=== PATIENT | male | born 1985 | race Caucasian/White ===

== ENCOUNTER → 2018-04-18 | Outpatient (CLI) | payer OTHER ==
--- NOTE | 2018-04-18 17:49 | RAD ---
Scrotal ultrasound 04/18/2018 CLINICAL HISTORY: Scrotal pain. TECHNIQUE: Using a combination of real-time ultrasound imaging and color-flow and pulse Doppler imaging techniques, duplex evaluation of the scrotal sac and its contents was performed. Multiple images were obtained. FINDINGS: Both testicles are within normal limits in size and echogenicity. The right testicle measures 2.6 x 3.6 x 1.9 cm in longitudinal, transverse, and AP dimensions. The left testicle measures 2.6 x 3.6 x 1.9 cm in size. No focal abnormality of either testicle is seen. Normal color-flow and pulse Doppler imaging to both testicles is noted. Both epididymal heads are within normal limits in size and echogenicity. No hydrocele or varicocele is seen. IMPRESSION: Negative study. Electronically signed by: Uriel Allen MD (04/18/2018 5:45 PM) [facility]
== END | disposition home or self-care (01) ==
LOC: US 16:32
PROVIDERS: ATTEND Physician Assistant
DX: N50.82 Scrotal pain (principal); N50.819 Testicular pain, unspecified
CPT/HCPCS: 76870

== ENCOUNTER 2020-04-26 04:10 | Emergency (ER) | payer OTHER ==
[~2020-04-26] VITALS: Ht 180.3 cm; Wt 84.6 kg
--- NOTE | 2020-04-26 04:21 | PHYS DOC ---
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 but I woke up with severe back pain... ".. ".. Looked it up on internet.. and said I may have meningitis." Patient is a 34 year old male who presents with above hx and complaints lumbar sacral pain. Patient states the pain woke him out of sleep. Describes pain as someone having a knee in the middle of the back. Patient denies previous history of renal stones. Patient has had a history of hidradenitis requiring skin grafting to his axillary area. Patient denies IV drug use. Denies specific ill contacts. No recent travel. Patient does smoke. Patient recently has started a new job at [employer] or [employer] closed. Patient denies any ballistic trauma. Patient only follows with Dr. Juarez. Review of Systems: Review of Systems: Constitutional: Denies fever or chills Eyes: Denies change in visual acuity HENT: Denies nasal congestion or sore throat Respiratory: Denies cough or shortness of breath Cardiovascular: Denies chest pain or edema GI: Complains of nausea : Denies dysuria Musculoskeletal: Complains of severe back pain Integument: Denies rash Neurologic: Denies headache, focal weakness or sensory changes Endocrine: Denies polyuria or polydipsia Lymphatic: Denies swollen glands Psychiatric: Denies depression or anxiety Heart Score: Risk Factors: Risk Factors: DM, Current or recent (<one month) smoker, HTN, HLP, family history of CAD, obesity. Risk Scores: Score 0 - 3: 2.5% MACE over next 6 weeks - Discharge Home Score 4 - 6: 20.3% MACE over next 6 weeks - Admit for Clinical Observation Score 7 - 10: 72.7% MACE over next 6 weeks - Early Invasive Strategies Family History: Family History: Noncontributory Current Medications: Current Meds: See nursing for home meds Allergies: Allergies: Allergic to penicillin Physical Exam: PE: Constitutional: Moderate acute distress, non-toxic appearance. [] HENT: Normocephalic, atraumatic, bilateral external ears normal, oropharynx moist, no oral exudates, nose normal. [] Eyes: PERRLA, EOMI, conjunctiva normal, no discharge. [] Neck: Normal range of motion, no tenderness, supple, no stridor. [] Cardiovascular:Heart rate regular rhythm, no murmur [] Lungs & Thorax: Bilateral breath sounds equal apex with scattered wheezes on auscultation [] Abdomen: Bowel sounds normal, soft, no tenderness, no masses, no pulsatile masses. [] Skin: Warm, dry, no erythema, no rash. Tattoos. Multiple skin lesions. Back: Lumbar sacral muscle spasm and tenderness, mild CVA tenderness. [] Extremities: No tenderness, no cyanosis, no clubbing, ROM intact, no edema. Bilateral axillary scars. Bilateral groin adenopathy. ( Pt. states he has had this adenopathy chronically for months if not years. ) Straight leg lift does not markedly exacerbate his pain. Neurologic: Alert and oriented X 3, normal motor function, normal sensory function, no focal deficits noted. [] Psychologic: Affect very anxious, judgement normal, mood normal. [] EKG: EKG: [] Radiology/Procedures: Radiology/Procedures: [][place] [address] IMAGING REPORT Signed PATIENT: CORWIN MCGARRY ACCOUNT: [id number] : 1985 LOCATION: ER AGE: 34 SEX: M EXAM STATUS: REG ER ORD. PHYSICIAN: VIOLETA MENENDEZ MD REASON: BACK PAIN, RENAL COLIC PROCEDURE: CT ABDOMEN PELVIS WO CONTRAST CT lumbar spine without contrast. CT abdomen and pelvis without contrast. HISTORY: Severe back pain. Lumbar spine findings: Lumbar vertebral body height and alignment intact. No fracture. No spondylolysis defect. No lytic or sclerotic bone lesion. Paraspinal tissues are unremarkable. L5-S1 there is a bulky disc osteophyte contributing to severe spinal canal and left lateral recess stenosis and moderate to severe neural foraminal stenoses. IMPRESSION: No acute osseous injury lumbar spine. Lumbosacral disc disease as described above. CT abdomen findings: 5 mm nodule lateral basilar right lower lobe image 5. Separate medial basilar right lower lobe linear nodular density measuring 20 x 7 mm image 6. Scattered bilateral lower lobe some solid nodules largest measuring 10 mm left lower lobe image 3. Lower thoracic disc disease as well as lower lumbar disc disease. Subcentimeter hypodensity inferior right hepatic lobe too small to characterize statistically most likely small cyst or hemangioma no follow-up is necessary. Gallbladder, pancreas, spleen, adrenal glands and kidneys are unremarkable. No urinary calculi or hydronephrosis or perinephric edema. Appendix is negative. No obstruction or inflammation the GI tract. No abdominal free fluid. Left upper quadrant abdominal wall 1.5 cm in diameter lesion resulting in skin thickening and mild subcutaneous density with a depth of 0.6 cm. Pelvis findings: No bladder calculi. Prostate, rectum and bones are unremarkable. Mild enlarged bilateral inguinal lymph nodes with cortical thickening and round morphology largest measuring 1.5 cm of the left lower groin. IMPRESSION: 1. Mild bilateral inguinal adenopathy as described above. 2. Solid and subsolid nodules of the bilateral lower lobes largest there is a subsolid nodule measuring 10 mm and a separate linear nodular density at the right lower lobe measuring 20 x 7 mm. This could represent infectious/inflammatory process versus metastatic disease. 3. Left upper quadrant abdominal wall skin lesion with mild subcutaneous density measuring 1.5 x 0.6 cm. This is indeterminate, correlate with physical examination. Exposure: One or more of the following individualized dose reduction techniques were utilized for this examination: 1. Automated exposure control 2. Adjustment of the mA and/or kV according to patient size 3. Use of iterative reconstruction technique Electronically signed by: Radha Arreola MD (04/26/2020 5:23 AM) [facility] DICTATED AND SIGNED BY: RADHA ARREOLA MD DATE: 04/26/20522 CC: RISA JUAREZ MD; VIOLETA MENENDEZ MD ~ Course & Med Decision Making: Course & Med Decision Making Pertinent Labs and Imaging studies reviewed. (See chart for details) Patient take Tylenol and ibuprofen for pain. Ice pack s as needed. Return if any concerns. Follow-up Dr. Juarez. . Review ED work-up. Impression: 1. Back pain 2. Sprain Strain 3. Groin adenopathy-history of hidradenitis [] Sariah Disclaimer: [employer] Disclaimer: This electronic medical record was generated, in whole or in part, using a voice recognition dictation system. Departure Departure: Disposition: 01 DC HOME SELF CARE/HOMELESS Condition: STABLE Referrals: RISA JUAREZ MD (PCP) VIOLETA MENENDEZ MD Apr 26, 2020 04:21
[2020-04-26] MEDS ORDERED: ORPHENADRINE CITRATE 60 MG/2 ML VIAL. IM ONE (05:00)
[2020-04-26] MEDS ORDERED: ONDANSETRON ODT 4 MG TAB.RAPDIS PO ONE (05:00)
[2020-04-26] MEDS ORDERED: KETOROLAC 60 MG/2 ML VIAL. IM ONE (05:00)
--- NOTE | 2020-04-26 05:26 | RAD ---
CT lumbar spine without contrast. CT abdomen and pelvis without contrast. HISTORY: Severe back pain. Lumbar spine findings: Lumbar vertebral body height and alignment intact. No fracture. No spondylolysis defect. No lytic or sclerotic bone lesion. Paraspinal tissues are unremarkable. L5-S1 there is a bulky disc osteophyte contributing to severe spinal canal and left lateral recess stenosis and moderate to severe neural foraminal stenoses. IMPRESSION: No acute osseous injury lumbar spine. Lumbosacral disc disease as described above. CT abdomen findings: 5 mm nodule lateral basilar right lower lobe image 5. Separate medial basilar right lower lobe linear nodular density measuring 20 x 7 mm image 6. Scattered bilateral lower lobe some solid nodules largest measuring 10 mm left lower lobe image 3. Lower thoracic disc disease as well as lower lumbar disc disease. Subcentimeter hypodensity inferior right hepatic lobe too small to characterize statistically most likely small cyst or hemangioma no follow-up is necessary. Gallbladder, pancreas, spleen, adrenal glands and kidneys are unremarkable. No urinary calculi or hydronephrosis or perinephric edema. Appendix is negative. No obstruction or inflammation the GI tract. No abdominal free fluid. Left upper quadrant abdominal wall 1.5 cm in diameter lesion resulting in skin thickening and mild subcutaneous density with a depth of 0.6 cm. Pelvis findings: No bladder calculi. Prostate, rectum and bones are unremarkable. Mild enlarged bilateral inguinal lymph nodes with cortical thickening and round morphology largest measuring 1.5 cm of the left lower groin. IMPRESSION: 1. Mild bilateral inguinal adenopathy as described above. 2. Solid and subsolid nodules of the bilateral lower lobes largest there is a subsolid nodule measuring 10 mm and a separate linear nodular density at the right lower lobe measuring 20 x 7 mm. This could represent infectious/inflammatory process versus metastatic disease. 3. Left upper quadrant abdominal wall skin lesion with mild subcutaneous density measuring 1.5 x 0.6 cm. This is indeterminate, correlate with physical examination. Exposure: One or more of the following individualized dose reduction techniques were utilized for this examination: 1. Automated exposure control 2. Adjustment of the mA and/or kV according to patient size 3. Use of iterative reconstruction technique Electronically signed by: Daryn Arreola MD (04/26/2020 5:23 AM) [facility]
[2020-04-26 06:00] VITALS: BP 132/80
== END 2020-04-26 06:30 | disposition home or self-care (01) ==
LOC: ER 04:10
DX: S33.5XXA Sprain of ligaments of lumbar spine, initial encounter (principal); S33.8XXA Sprain of other parts of lumbar spine and pelvis, initial encounter; R59.0 Localized enlarged lymph nodes; F17.210 Nicotine dependence, cigarettes, uncomplicated; Z88.0 Allergy status to penicillin; X50.9XXA Other and unspecified overexertion or strenuous movements or postures, initial encounter; Y93.89 Activity, other specified; Y92.89 Other specified places as the place of occurrence of the external cause; Y99.8 Other external cause status
CPT/HCPCS: 72131; 74176; 96372; 99285; J1885; J2360; Q0162

== ENCOUNTER 2020-08-31 12:43 | Emergency (ER) | payer OTHER ==
[~2020-08-31] VITALS: Ht 180.3 cm; Wt 84.6 kg
[2020-08-31 12:43] VITALS: BP 136/85
[2020-08-31] MEDS ORDERED: NAPR-514 PO (13:06)
[2020-08-31] MEDS ORDERED: HYDR-2155 PO (13:06)
[2020-08-31] MEDS ORDERED: AMOX875T PO (13:06)
--- NOTE | 2020-08-31 13:06 | PHYS DOC ---
Past History Past Medical History: Other Additional Past Medical Histor: hidradenitis Past Surgical History: Other Additional Past Surgical Histo: xena axilla surgery with skin grafts Smoking: Cigarettes Alcohol Use: Occasionally Adult General Chief Complaint Chief Complaint: DENTAL PROBLEM HPI HPI Patient is a 35-year-old male patient presented to the ED today complaining of 8 out of 10 throbbing left upper gum dental pain, symptoms began last night. Patient denies any fever or trismus. Denies any nausea vomiting. He states he was insurance but has never thought of seeing the dentist. Denies anything specifically exacerbating the pain. States he has tried [id number] remedies with no relief Review of Systems Review of Systems Constitutional: Denies fever or chills [] HENT: Reports left upper gum dental pain. Denies nasal congestion or sore throat [] Musculoskeletal: Denies back pain or joint pain [] Integument: Denies rash or skin lesions [] Neurologic: Denies headache, focal weakness or sensory changes [] All other systems were reviewed and found to be within normal limits, except as documented in this note. Allergies Allergies Allergies Coded Allergies Type Severity Reaction Last Updated Verified Penicillins Allergy Intermediate 04/26/20 Yes Physical Exam Physical Exam Constitutional: Well developed, well nourished, no acute distress, non-toxic appearance. [] HENT: Normocephalic, atraumatic, bilateral external ears normal, oropharynx moist, no oral exudates, nose normal. [] Left upper molars and premolars are decayed and broken. No gum erythema, no dental abscess Skin: Warm, dry, no erythema, no rash. [] Back: No tenderness, no CVA tenderness. [] Extremities: No tenderness, no cyanosis, no clubbing, ROM intact, no edema. [] Neurologic: Alert and oriented X 3, normal motor function, normal sensory function, no focal deficits noted. [] Psychologic: Affect normal, judgement normal, mood normal. [] Current Patient Data Vital Signs Vital Signs Date Time Temp Pulse Resp B/P (MAP) Pulse Ox O2 Delivery O2 Flow Rate FiO2 08/31/20 12:43 98.1 70 16 136/85 (102) 97 Room Air EKG EKG [] Radiology/Procedures Radiology/Procedures [] Heart Score Risk Factors: Risk Factors: DM, Current or recent (<one month) smoker, HTN, HLP, family history of CAD, obesity. Risk Scores: Risk Factors: DM, Current or recent (<one month) smoker, HTN, HLP, family history of CAD, obesity. Course & Med Decision Making Course & Med Decision Making Pertinent Labs and Imaging studies reviewed. (See chart for details) This is a 35-year-old male patient presented to the ED today with dental pain and infection. Has tried [id number] remedies with no relief. Given prescription for amoxicillin (he stated he has taken it with no issues despite allergy to PCN) and 6 tablets of hydrocodone and naproxen. Encouraged to follow-up with a dentist. He called later stating his toungue is itching after taking Amoxicillin. Denied any throat or tongue swelling, denied any difficulty breathing. Instructed to take Benadryl right away. Prescription for clindamycin was sent to his pharmacy. Instructed to return to the ED if symptoms did not improve with Benadryl Dragon Disclaimer Dragon Disclaimer This electronic medical record was generated, in whole or in part, using a voice recognition dictation system. Departure Departure: Impression: Primary Impression: Dentalgia Additional Impression: Infected dental caries Disposition: HOME SELF CARE/HOMELESS Condition: STABLE Referrals: RISA JUAREZ MD (PCP) follow up with a dentist as soon as you can Patient Instructions: Dental Pain, [id number] Additional Instructions: You were seen for dental pain. Please take the prescribed antibiotics until completed and pain medicine as needed for pain. 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
[2020-08-31] MEDS ORDERED: CLIN300C9 PO (17:14)
== END 2020-08-31 13:10 | disposition home or self-care (01) ==
LOC: ER 12:43
DX: K02.9 Dental caries, unspecified (principal); Z88.0 Allergy status to penicillin
CPT/HCPCS: 99283-25

== ENCOUNTER 2020-09-07 18:04 | Emergency (ER) | payer OTHER ==
[~2020-09-07] VITALS: Ht 180.3 cm; Wt 84.6 kg
[~2020-09-07 18:04] MED LIST: AMOX875T PO; CLIN300C9 PO; HYDR-2155 PO; NAPR-514 PO
[2020-09-07 18:12] VITALS: BP 171/105
[2020-09-07] MEDS ORDERED: LIDOCAINE (700MG/PATCH) PATCH. TD SCH (18:21)
--- NOTE | 2020-09-07 18:24 | PHYS DOC ---
Past History Past Medical History: Other Additional Past Medical Histor: hidradenitis Past Surgical History: Other Additional Past Surgical Histo: xena axilla surgery with skin grafts Smoking: Cigarettes Alcohol Use: Occasionally Adult General Chief Complaint Chief Complaint: ABDOMINAL PAIN HPI HPI Patient is a 35-year-old male who presents with a chief complaint of left-sided rib pain. States he works at [employer], and is commonly lifting things 50 pounds or heavier. States that about 4 days ago he noticed he began to have pain in the left rib, just under his left nipple, 5 out of 10, dull and achy in nature. States that if he twists, turns or lifts it exacerbates it. States if he pushes on it it exacerbates it as well. Denies any recent traumas, travel, fevers, chest pain, shortness of breath, abdominal pain, nausea, vomiting. States he does have a primary care physician but had not been able to make it into see him. Denies any dyspnea on exertion, orthopnea, PND or edema. Denies any cardiac history. Review of Systems Review of Systems Review of systems otherwise unremarkable except noted in HPI Allergies Allergies Allergies Coded Allergies Type Severity Reaction Last Updated Verified Penicillins Allergy Intermediate 04/26/20 Yes Physical Exam Physical Exam Constitutional: Well developed, well nourished, no acute distress, non-toxic appearance. [] Neck: Normal range of motion, no tenderness, supple, no stridor. [] Cardiovascular:Heart rate regular rhythm, no murmur [] Lungs & Thorax: Bilateral breath sounds clear to auscultation [] Abdomen: soft, no tenderness, no masses, no pulsatile masses. [] Skin: Warm, dry, no erythema. Patient has hidradenitis bilaterally in the axilla with some scant amounts on the chest that is currently being treated by his primary care physician. [] Back: No tenderness, Extremities: No tenderness, no cyanosis, no clubbing, ROM intact, no edema. [] Neurologic: Alert and oriented X 3, normal motor function, normal sensory function, no focal deficits noted. [] Psychologic: Affect normal, judgement normal, mood normal. [] Current Patient Data Vital Signs Vital Signs Date Time Temp Pulse Resp B/P (MAP) Pulse Ox O2 Delivery O2 Flow Rate FiO2 09/07/20 18:12 97.6 84 16 171/105 (127) 98 Room Air EKG EKG [] Radiology/Procedures Radiology/Procedures [] FINDINGS: Single view chest shows normal heart and mediastinal contours. Lungs are clear. No consolidation or pleural effusion. No pneumothorax. Dedicated views of left-sided ribs show no evidence of displaced left rib fracture. No acute bony abnormality. IMPRESSION: No acute radiographic abnormality. No evidence of displaced left rib fracture. Electronically signed by: Tito Bishop MD (09/07/2020 7:11 PM) [facility] Heart Score Risk Factors: Risk Factors: DM, Current or recent (<one month) smoker, HTN, HLP, family history of CAD, obesity. Risk Scores: Risk Factors: DM, Current or recent (<one month) smoker, HTN, HLP, family history of CAD, obesity. Course & Med Decision Making Course & Med Decision Making Patient is a 35-year-old male who presents with left-sided rib pain after lifting something at work Vital signs not concerning. Physical exam noted above. Started on Tylenol and Lidoderm patch. Patient states he does get heartburn as well and had not been taking his medicine so given GI cocktail. Imaging not concerning. GI cocktail appeared to give relief. Given work note and advised decreased lifting until cleared by his primary care physician. Discussed all findings with patient and recommended follow-up with his primary care physician as soon as he can to discuss ED visit and continued evaluation and treatment of his rib pain and heartburn. Advised to come back to the ED with new or concerning symptoms. Patient grateful, verbalized understanding and agreed with plan of discharge. [] Dragon Disclaimer Dragon Disclaimer This electronic medical record was generated, in whole or in part, using a voice recognition dictation system. Departure Departure: Impression: Primary Impression: Rib pain on left side Additional Impression: Heartburn Disposition: 01 DC HOME SELF CARE/HOMELESS Condition: GOOD Referrals: RISA JUAREZ MD (PCP) Patient Instructions: Heartburn, RICE - Routine Care for Injuries Additional Instructions: Please read all the attached information. Please begin a regimen of heartburn medicine, such as omeprazole that she can get [id number]. Please make an appointment with your primary care physician as soon as you can to discuss your ED visit, your heartburn and your rib pain. You are given a work note for decreased activity until you can see your primary care physician. Please come back to the emergency department with any new or concerning symptoms. Problem Qualifiers ANGELO AHUJA MD Sep 07, 2020 18:24
[2020-09-07] MEDS ORDERED: ACETAMINOPHEN 500 MG TABLET PO ONE (18:30)
[2020-09-07] MEDS ORDERED: LIDO:MAALOX 1:1 20 ML SINGLE DOSE. PO ONE (18:30)
--- NOTE | 2020-09-07 19:14 | RAD ---
Single view chest and left-sided rib study dated . No comparison available. Clinical indication: Pain. FINDINGS: Single view chest shows normal heart and mediastinal contours. Lungs are clear. No consolidation or p leural effusion. No pneumothorax. Dedicated views of left-sided ribs show no evidence of displaced left rib fracture. No acute bony abn ormality. IMPRESSION: No acute radiographic abnormality. No evidence of displaced left rib fracture. Electronically signed by: Tito Bishop MD (09/07/2020 7:11 PM) [facility]
[2020-09-07] MEDS ORDERED: PATCH REMOVAL. MC SCH (21:00)
== END 2020-09-07 19:30 | disposition home or self-care (01) ==
LOC: ER 18:04
DX: R07.81 Pleurodynia (principal); R12 Heartburn; F17.210 Nicotine dependence, cigarettes, uncomplicated; Z98.890 Other specified postprocedural states; Z88.0 Allergy status to penicillin
CPT/HCPCS: 71101; 99284

== ENCOUNTER 2020-09-28 20:32 | Observation (INO) | payer OTHER ==
[~2020-09-28] VITALS: Ht 177.8 cm; Wt 79.6 kg
[2020-09-28] MEDS ORDERED: ENOXAPARIN ** NOTE DOSE ** SYRINGE SQ ONE ×2 (21:15→21:30)
--- NOTE | 2020-09-28 21:16 | PHYS DOC ---
Past History Past Medical History: No Pertinent History, Angina, Anxiety Additional Past Medical Histor: hidradenitis Past Surgical History: No Surgical History Additional Past Surgical Histo: xena axilla surgery with skin grafts Smoking: Cigarettes Alcohol Use: None General Adult EDM: Chief Complaint: CHEST PAIN-CARDIAC NATURE HPI: HPI: ".. I ve had chest pain for a while.. flutter.. irregular heart rate.. I did see a Chrome Plater... he wanted me to do a stress test.. but I could not get off work at [employer] to do the test.. I had a monitor for a while.. and I was to push it any time I had the fluttering...;" Patient is a 35 year old male who presents with hx of chest discomfort and " fluttering " of and on for months. Pt. follows with Dr. Mcclellan . Follow s with [facility]. Pt. does smoke. 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 Patient denies any travel. Patient denies any severe ill contacts. Patient states the distribution tonight was worrisome so he presented to the emergency department for further evaluation. Patient denies any history of previous MIs. No history of travel. No specific ill contacts. No history immunosuppression. Review of Systems: Review of Systems: Constitutional: Denies fever or chills Eyes: Denies change in visual acuity HENT: Denies nasal congestion or sore throat Respiratory: Denies cough or shortness of breath Cardiovascular: Complaints of dysrhythmia and chest discomfort GI: Denies abdominal pain, nausea, vomiting, bloody stools or diarrhea : Denies dysuria Musculoskeletal: Denies back pain or joint pain Integument: Denies rash Neurologic: Denies headache, focal weakness or sensory changes Endocrine: Denies polyuria or polydipsia Lymphatic: Denies swollen glands Psychiatric: Denies depression or anxiety Family History: Family History: Noncontributory to presentation Current Medications: Current Meds: See nursing for home meds Allergies: Allergies: Allergies Coded Allergies Type Severity Reaction Last Updated Verified Penicillins Allergy Intermediate 04/26/20 Yes Physical Exam: PE: Constitutional: Moderate acute distress, non-toxic appearance. [] HENT: Normocephalic, atraumatic, bilateral external ears normal, oropharynx mo ist, no oral exudates, nose normal. [] Eyes: PERRLA, EOMI, conjunctiva normal, no discharge. [] Neck: Normal range of motion, no tenderness, supple, no stridor. [] Cardiovascular:Heart rate regular rhythm, no murmur [] monitor shows a sinus rhythm Lungs & Thorax: Bilateral breath sounds to apex with scattered wheezes on auscultation [] Abdomen: Bowel sounds normal, soft, no tenderness, no masses, no pulsatile masses. [] Skin: Warm, dry, no erythema, no rash. Extensive skin scarring from hidradenitis supra tibia axillary and other areas of body Back: No tenderness, no CVA tenderness. [] Extremities: No tenderness, no cyanosis, no clubbing, ROM intact, no edema. No cording appreciated. Neurologic: Alert and oriented X 3, normal motor function, normal sensory function, no focal deficits noted. [] Psychologic: Affect anxious, judgement normal, mood normal. [] Current Patient Data: Vital Signs: Vital Signs Date Time Temp Pulse Resp B/P (MAP) Pulse Ox O2 Delivery O2 Flow Rate FiO2 09/28/20 20:47 98.5 80 18 150/93 (112) 97 Room Air EKG: EKG: My interpretation EKG shows a sinus rhythm at 75 bpm. No findings acute STEMI of contralateral changes My interpretation of second EKG at 0 :28 shows a sinus rhythm at 77 bpm with no acute changes or morphology changes from prior EKG [] Radiology/Procedures: Radiology/Procedures: [] Heart Score: C/O Chest Pain: No HEART Score for Chest Pain: HEART Score for Chest Pain Response (Comments) Value History Slighlty/Non-Suspicious 0 ECG Normal 0 Age < 45 0 Risk Factors 1 or 2 Risk Factors 1 Troponin < Normal Limit 0 Total 1 Risk Factors: Risk Factors: DM, Current or recent (<one month) smoker, HTN, HLP, family history of CAD, obesity. Risk Scores: Score 0 - 3: 2.5% MACE over next 6 weeks - Discharge Home Score 4 - 6: 20.3% MACE over next 6 weeks - Admit for Clinical Observation Score 7 - 10: 72.7% MACE over next 6 weeks - Early Invasive Strategies Course & Med Decision Making: Course & Med Decision Making Pertinent Labs and Imaging studies reviewed. (See chart for details) Discussed presentation, testing and tx, plan with Dr. Mcclellan. Advised admit to his service with cardiology consult. Impression: 1. Chest Pain 2. Complaints of Dysrhythimia 3. Tobacco Use 4. HTN 5 . Hx hidradenitis suppurativa [] Sariah Disclaimer: Sariah Disclaimer: This electronic medical record was generated, in whole or in part, using a voice recognition dictation system. Departure Departure: Referrals: RISA MCCLELLAN MD (PCP) Sariah Disclaimer This chart was dictated in whole or in part using Voice Recognition software in a busy, high-work load, and often noisy Emergency Department environment. It may contain unintended and wholly unrecognized errors or omissions. VIOLETA MENENDEZ MD Sep 28, 2020 21:16
[2020-09-28] MEDS ORDERED: IV RINGERS SOLUTION,LACTATED 1,000 ML IV SCH (21:30)
[2020-09-28] MEDS ORDERED: ASPIRIN CHEWABLE 81 MG TABLET. PO ONE (21:30)
[2020-09-28 21:54] LABS: BASO # 0.1 x10^3/uL (0.0-0.2); BASO % 1 % (0-3); EOS # 0.2 x10^3/uL (0.0-0.7); EOS % 2 % (0-3); HEMATOCRIT 44.3 % (39.0-53.0); HEMOGLOBIN 15.3 g/dL (13.0-17.5); LYMPH # 2.5 x10^3/uL (1.0-4.8); LYMPH % 22 % (24-48); MEAN CORPUSCULAR HEMOGLOBIN 30 pg (25-35); MEAN CORPUSCULAR HGB CONC 35 g/dL (31-37); MEAN CORPUSCULAR VOLUME 88 fL (79-100); MONO # 1.1 x10^3/uL (0.0-1.1); MONO % 10 % (0-9); NEUT # 7.4 x10^3uL (1.8-7.7); NEUT % 66 % (31-73); PLATELET COUNT 180 x10^3/uL (140-400); RED BLOOD COUNT 5.03 x10^6/uL (4.30-5.70); RED CELL DISTRIBUTION WIDTH 13.8 % (11.5-14.5); WHITE BLOOD COUNT 11.2 x10^3/uL (4.0-11.0)
[2020-09-28 22:03] LABS: CALCIUM 9.1 mg/dL (8.5-10.1); CREATININE 0.9 mg/dL (0.7-1.3); GFR 95.5; POTASSIUM 4.1 mmol/L (3.5-5.1)
--- NOTE | 2020-09-28 22:09 | RAD ---
Chest AP portable 09/28/2020. Reason for exam: Chest pain. Comparison is made with a study of 09/07/2020. No new infiltrate or effusion is seen. Heart size and probably vascularity appear normal. IMPRESSION: No acute abnormality. Electronically signed by: Rikki Kaur Jr., MD (09/28/2020 10:06 PM) [facility]
[2020-09-28 22:22] LABS: ALBUMIN 3.5 g/dL (3.4-5.0); DIRECT BILIRUBIN 0.1 mg/dL (0.0-0.2); MAGNESIUM 2.4 mg/dL (1.8-2.4); TOTAL BILIRUBIN 0.3 mg/dL (0.2-1.0); TOTAL PROTEIN 7.2 g/dL (6.4-8.2)
[2020-09-28 22:23] LABS: BILIRUBIN,URINE NEG (NEG); CLARITY,URINE CLEAR; COLOR,URINE YELLOW; GLUCOSE,URINE NEG (NEG); NITRITE,URINE NEG (NEG); UROBILINOGEN,URINE 0.2 mg/dL (0.2 mg/dL)
[2020-09-28 22:26] LABS: BACTERIA,URINE 0 /HPF (0-FEW); RBC,URINE 0 /HPF (0-2); WBC,URINE 0 /HPF (0-4)
[2020-09-28 22:31] LABS: AMPHETAMINE/METHAMPHETAMINE NEG (NEG); BARBITURATES NEG (NEG); BENZODIAZEPINES NEG (NEG); CANNABINOIDS NEG (NEG); COCAINE NEG (NEG); METHADONE NEG (NEG); OPIATES NEG (NEG); PHENCYCLIDINE NEG (NEG)
[2020-09-28] MEDS ORDERED: ACETAMINOPHEN 325 MG TABLET PO PRN (23:45)
[2020-09-28] MEDS ORDERED: ONDANSETRON PF 4 MG/2 ML VIAL. IVP PRN (23:45)
[2020-09-29 03:04] VITALS: BP 147/96
--- NOTE | 2020-09-29 03:36 | EKG ---
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
--- NOTE | 2020-09-29 03:45 | NUR ---
The patient, CORWIN MCGARRY, 35 y/o, M admitted by RISA JUAREZ MD, was given written information regarding hospital policies, unit procedures and contact persons. Pt accompanied onto the unit by EMS personnel and nursing fitting supervisor via [facility]. Pt ambulated independently from rpilgrims knob to bed. VSS. clinical systems analyst applied. Pt reports that the chest pain started around 1430 yesterday, and that it felt like someone had punched him in the center of the chest real quick. Pt oriented to room, visiting policy and plan of care. Valuables were checked and left in room with pt. Call light within reach.
[2020-09-29 06:24] VITALS: BP 132/86
[2020-09-29] MEDS ORDERED: IPRATROPIUM/ALBUTEROL 20/100mcg/INH INHALER. INH SCH (08:00)
[2020-09-29] MEDS ORDERED: ASPIRIN CHEWABLE 81 MG TABLET. PO SCH (08:00)
[2020-09-29] MEDS ORDERED: IPRATRPIUM/ALBUTEROL 0.5/2.5MG 3 ML NEBU. NEB SCH ×2 (08:00→09:00)
[2020-09-29 11:20] VITALS: BP 123/80
--- NOTE | 2020-09-29 11:48 | NUR ---
Discharge Note: CORWIN MCGARRY [facility] Discharge instructions and discharge home medications reviewed with Patient and a copy given. All questions have been answered and understanding verbalized. The following instructions and handouts were given: Discharge instructions Follow up care Chest pain hand-out Discontinued lines and drains: Peripheral IV intact. Patient discharged to Home or Self Care, ambulated off unit by self.
--- NOTE | 2020-09-29 11:55 | HP ---
ADMIT DATE: 09/29/2020 HISTORY OF PRESENT ILLNESS: A 35-year-old male came in through the Emergency Room, was awoken up with chest pain, substernal, radiating up into his neck. The patient has a previous history to problems with cardiac arrhythmias and has been worked up to some degree at [facility]; however, he did not follow up for a treadmill, but they were recommended. He noted to have any nausea, vomiting, chest pain, no shortness of breath with this and the patient otherwise was admitted for rule out MT protocol. PAST MEDICAL HISTORY: Angina, anxiety, also problem with heavy sweating. He has had problems with hidradenitis bilateral axilla with surgery. FAMILY HISTORY: Mother with sleep apnea. Father with heart attack and diabetes in the mother. ALLERGIES: PENICILLIN AND XANAX. SOCIAL HISTORY: The patient smokes anywhere from a pack a day to 4 cigarettes a day. Recently, it has increased. Occasional alcohol use, but nothing significant. REVIEW OF SYSTEMS: Outside of the chest discomfort, he denies headaches, visual change, blurred vision, double vision. Denies shortness of breath. Denies any melena, hematochezia or hematemesis. Neurologically baseline, stable. PHYSICAL EXAMINATION: GENERAL: This is a pleasant gentleman. VITAL SIGNS: Blood pressure 132/86, respiratory rate 18, pulse 70, afebrile, room air 97%. HEENT: The patient's head was atraumatic, normocephalic. Eyes: PERRLA without jaundice. The mouth and throat were normal. NECK: Supple. No thyromegaly. LUNGS: Diminished throughout, but clear. CARDIOVASCULAR: Regular sinus rhythm. The patient has multiple erythematous eruptions on the trunk of his body, possibly form of acne. ABDOMEN: Soft, nontender. EXTREMITIES: No clubbing, cyanosis, nor edema. NEUROLOGIC: The patient was alert and oriented x 3. The patient's cardiac enzymes were all within normal limits. LABORATORY DATA: Show white count 11, did have increased monocytes of 10. Chemistries were all within range. Sodium, potassium, BUN and creatinine, liver enzymes, cardiac enzymes were all negative. Drug screen negative. Urine appropriate. He had a COVID test done in the ER, but that is pending, but had still contact with them. IMPRESSION: Chest pain, history of possibly of angina, history of cardiac arrhythmias, tobacco abuse. The patient will go ahead and be discharged home. I have recommended a baby aspirin. 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 RISA JUAREZ MD DR: MOSHE/genny JOB#: [id number] / [id number]
--- NOTE | 2020-09-30 09:58 | EKG ---
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
--- NOTE | 2020-10-02 10:29 | NUR ---
IP: attempt to notify patient of COVID results, left message to call back.
== END 2020-09-29 11:50 | disposition home or self-care (01) ==
LOC: ER 20:32 → 1 SOUTH 09-29 01:15 → ER 09-29 01:15 → INTOOBSV 09-29 01:15
PROVIDERS: ADMIT Family Medicine; ATTEND Family Medicine
DX: R07.89 Other chest pain (principal); Z20.822 Contact with and (suspected) exposure to COVID-19; I49.9 Cardiac arrhythmia, unspecified; I10 Essential (primary) hypertension; I20.9 Angina pectoris, unspecified; L73.2 Hidradenitis suppurativa; F41.9 Anxiety disorder, unspecified; F17.210 Nicotine dependence, cigarettes, uncomplicated; Z79.899 Other long term (current) drug therapy
CPT/HCPCS: 36415; 71045; 80048; 80061; 80076; 80307; 81001; 82550; 83690; 83735; 83880; 84443; 84484; 85025; 85379; 85610; 85730; 93005; 96361; 96372; 96374; 99285; G0378; G0379; J1650; J2060; J7120; U0003

== ENCOUNTER 2020-11-19 11:10 | Emergency (ER) | payer OTHER ==
[~2020-11-19] VITALS: Ht 177.8 cm; Wt 78.6 kg
[2020-11-19] MEDS ORDERED: IV NORMAL SALINE 1,000ML 1,000 ML IV ONE (11:15)
[2020-11-19] MEDS ORDERED: ASPIRIN CHEWABLE 81 MG TABLET. PO ONE (11:15)
[2020-11-19 11:33] LABS: BASO # 0.1 x10^3/uL (0.0-0.2); BASO % 1 % (0-3); EOS # 0.1 x10^3/uL (0.0-0.7); EOS % 1 % (0-3); HEMATOCRIT 44.6 % (39.0-53.0); HEMOGLOBIN 15.3 g/dL (13.0-17.5); LYMPH # 1.8 x10^3/uL (1.0-4.8); LYMPH % 19 % (24-48); MEAN CORPUSCULAR HEMOGLOBIN 31 pg (25-35); MEAN CORPUSCULAR HGB CONC 34 g/dL (31-37); MEAN CORPUSCULAR VOLUME 90 fL (79-100); MONO # 0.9 x10^3/uL (0.0-1.1); MONO % 9 % (0-9); NEUT % 71 % (31-73); PLATELET COUNT 194 x10^3/uL (140-400); RED BLOOD COUNT 4.95 x10^6/uL (4.30-5.70); RED CELL DISTRIBUTION WIDTH 13.2 % (11.5-14.5); WHITE BLOOD COUNT 9.9 x10^3/uL (4.0-11.0)
--- NOTE | 2020-11-19 11:37 | PHYS DOC ---
Past History Past Medical History: No Pertinent History, Angina, Anxiety Additional Past Medical Histor: hidradenitis Past Surgical History: No Surgical History Additional Past Surgical Histo: xena axilla surgery with skin grafts Smoking: Cigarettes Alcohol Use: None General Adult EDM: Chief Complaint: CHEST PAIN HPI: HPI: 35-year-old male presents with chest pain. He has had intermittent chest pain for the last 3 days. She describes the pain as a sharp pain that occurs across the top of his chest and sometimes radiates down to his arms. It can also radiate into the left side of his neck, but not the right. These episodes usually only last for a couple minutes at a time but he has had "a lot" of episodes in the last couple of days. The patient was having palpitations over a month ago and recently had a stress test about 2 weeks ago that is reported to be negative. His palpitations have improved since he decreased his caffeine intake, but the pain is new. He denies diaphoresis or shortness of breath. He has high exercise tolerance and walks a lot every day. He denies fever or chills. Review of Systems: Review of Systems: Constitutional: Denies fever or chills Eyes: Denies change in visual acuity HENT: Denies nasal congestion or sore throat Respiratory: Denies cough or shortness of breath Cardiovascular: Chest pain GI: Denies abdominal pain, nausea, vomiting, bloody stools or diarrhea : Denies dysuria Musculoskeletal: Denies back pain or joint pain Integument: Denies rash Neurologic: Denies headache, focal weakness or sensory changes Endocrine: Denies polyuria or polydipsia Lymphatic: Denies swollen glands Psychiatric: Denies depression or anxiety Current Medications: Current Meds: Current Medications Medications (Trade) Dose Ordered Sig/Candelaria Start Time Stop Time Status Last Admin Dose Admin Aspirin (Aspirin Chewable) 324 mg 1X ONCE 11/19/20 11:15 11/19/20 11:16 DC Sodium Chloride 1,000 ml @ 1,000 mls/hr 1X ONCE 11/19/20 11:15 11/19/20 12:14 Allergies: Allergies: Allergies Coded Allergies Type Severity Reaction Last Updated Verified alprazolam Allergy Severe 09/29/20 Yes Penicillins Allergy Intermediate 04/26/20 Yes Physical Exam: PE: Constitutional: Well developed, well nourished, no acute distress, non-toxic appearance. [] HENT: Normocephalic, atraumatic, bilateral external ears normal, oropharynx moist, no oral exudates, nose normal. [] Eyes: PERRLA, EOMI, conjunctiva normal, no discharge. [] Neck: Normal range of motion, no tenderness, supple, no stridor. [] Cardiovascular: Heart rate 94, regular rhythm, no murmur [] Lungs & Thorax: Bilateral breath sounds clear to auscultation [] Abdomen: Bowel sounds normal, soft, no tenderness, no masses, no pulsatile masses. [] Skin: Multiple healing wounds consistent with folliculitis on the chest. [] Back: No tenderness, no CVA tenderness. [] Extremities: No tenderness, no cyanosis, no clubbing, ROM intact, no edema. [] Neurologic: Alert and oriented X 3, normal motor function, normal sensory function, no focal deficits noted. [] Psychologic: Affect normal, judgement normal, mood normal. [] Current Patient Data: Vital Signs: Vital Signs Date Time Temp Pulse Resp B/P (MAP) Pulse Ox O2 Delivery O2 Flow Rate FiO2 11/19/20 11:13 98.2 85 18 156/95 (115) 97 Room Air EKG: EKG: Sinus rhythm, rate 94, normal axis, no ST elevation or depression. [] Radiology/Procedures: Radiology/Procedures: [] Impressions: Single AP view of the chest. Comparison: 09/28/2020. Indication: Chest pain Findings: The heart is not enlarged. There is no pneumothorax or effusion. No air space or interstitial disease. Impression: 1. No acute cardiopulmonary process. Electronically signed by: Jonathan Khan MD (11/19/2020 11:35 AM) [id number] DICTATED AND SIGNED BY: JONATHAN KHAN MD DATE: 11/19/20 1135 CC: ARTURO YOUNGER DO; RISA JUAREZ MD ~MTH0 0 Heart Score: C/O Chest Pain: Yes HEART Score for Chest Pain: HEART Score for Chest Pain Response (Comments) Value History Slighlty/Non-Suspicious 0 ECG Normal 0 Age < 45 0 Risk Factors No Risk Factors 0 Troponin < Normal Limit 0 Total 0 Risk Factors: Risk Factors: DM, Current or recent (<one month) smoker, HTN, HLP, family history of CAD, obesity. Risk Scores: Score 0 - 3: 2.5% MACE over next 6 weeks - Discharge Home Score 4 - 6: 20.3% MACE over next 6 weeks - Admit for Clinical Observation Score 7 - 10: 72.7% MACE over next 6 weeks - Early Invasive Strategies Course & Med Decision Making: Course & Med Decision Making Pertinent Labs and Imaging studies reviewed. (See chart for details) EKG is unremarkable. His chest x-ray is negative for acute findings. Labs are unremarkable and his troponin is negative. His urinalysis is negative for infection. His drug screen is negative. This does not appear to be cardiopulmonary in nature. I did not see any life-threatening condition at this time. The patient is stable for discharge. He will follow-up with his primary care physician as needed. [] Dragon Disclaimer: Dragon Disclaimer: This electronic medical record was generated, in whole or in part, using a voice recognition dictation system. Departure Departure: Impression: Primary Impression: Chest pain Disposition: HOME / SELF CARE / HOMELESS Condition: STABLE Referrals: RISA JUAREZ MD (PCP) Patient Instructions: Chest Pain (Nonspecific), Btol-en-Pwrz Scripts No Active Prescriptions or Reported Meds ARTURO YOUNGER DO November 19, 2020 11:37
--- NOTE | 2020-11-19 11:38 | RAD ---
Single AP view of the chest. Comparison: 09/28/2020. Indication: Chest pain Findings: The heart is not enlarged. There is no pneumothorax or effusion. No air space or interstitial diseas e. Impression: 1. No acute cardiopulmonary process. Electronically signed by: Jonathan North MD (11/19/2020 11:35 AM) [id number]
[2020-11-19 11:42] LABS: CALCIUM 8.8 mg/dL (8.5-10.1); CREATININE 0.8 mg/dL (0.7-1.3); GFR 109.4
[2020-11-19 11:48] LABS: ALBUMIN 3.5 g/dL (3.4-5.0); ALBUMIN/GLOBULIN RATIO 0.9 (1.0-1.7); TOTAL BILIRUBIN 0.4 mg/dL (0.2-1.0); TOTAL PROTEIN 7.3 g/dL (6.4-8.2)
[2020-11-19 11:52] LABS: POTASSIUM 4.2 mmol/L (3.5-5.1)
[2020-11-19 12:56] LABS: BARBITURATES NEG (NEG); BENZODIAZEPINES NEG (NEG); CANNABINOIDS NEG (NEG); COCAINE NEG (NEG); METHADONE NEG (NEG); OPIATES NEG (NEG); PHENCYCLIDINE NEG (NEG)
[2020-11-19 12:58] LABS: AMPHETAMINE/METHAMPHETAMINE NEG (NEG)
--- NOTE | 2020-11-19 13:05 | EKG ---
[address] [address] Test Date: 2020-11-19 Test Time: 11:12:07 Pat Name: CORWIN MCGARRY Department: Room: Gender: M Technical Sme: JASMYNE : 1985 Requested By: ARTURO YOUNGER Order Number: [id number] Reading MD: Measurements Intervals [place] Rate: 94 P: 42 [place]: 128 QRS: 78 QRSD: 86 T: 48 QT: 340 QTc: 430 Interpretive Statements SINUS RHYTHM NORMAL ECG RI6.02 No previous ECG available for comparison
[2020-11-19 13:10] VITALS: BP 112/66
[2020-11-19 13:20] LABS: BACTERIA,URINE 0 /HPF (0-FEW); BILIRUBIN,URINE NEG (NEG); CLARITY,URINE CLEAR; COLOR,URINE COLORLESS; GLUCOSE,URINE NEG (NEG); NITRITE,URINE NEG (NEG); RBC,URINE 0 /HPF (0-2); UROBILINOGEN,URINE 0.2 mg/dL (0.2 mg/dL); WBC,URINE 0 /HPF (0-4)
== END 2020-11-19 13:57 | disposition home or self-care (01) ==
LOC: ER 11:14
DX: R07.89 Other chest pain (principal); F41.9 Anxiety disorder, unspecified; F17.210 Nicotine dependence, cigarettes, uncomplicated; Z88.0 Allergy status to penicillin; Z88.8 Allergy status to other drugs, medicaments and biological substances
CPT/HCPCS: 36415; 71045; 80053; 80307; 81001; 84484; 85025; 93005; 96360; 99285; J7030

== ENCOUNTER 2021-05-02 16:11 | Emergency (ER) | payer OTHER ==
[~2021-05-02] VITALS: Ht 177.8 cm; Wt 78.6 kg
[~2021-05-02 16:11] MED LIST changes: +CLIN-95 PO; -CLIN300C9 PO
[2021-05-02 16:25] VITALS: BP 133/84
[2021-05-02] MEDS ORDERED: SMZ/TMP 800/160MG TABLET. PO ONE (16:30)
[2021-05-02] MEDS ORDERED: SULF-16 PO (16:36)
--- NOTE | 2021-05-02 16:37 | PHYS DOC ---
Past History Past Medical History: Angina, Anxiety Additional Past Medical Histor: hidradenitis Past Surgical History: No Surgical History Additional Past Surgical Histo: xena axilla surgery with skin grafts Smoking: Cigarettes Alcohol Use: None Adult General Chief Complaint Chief Complaint: SKIN RASH/ABSCESS [facility] HPI Patient is a 35-year-old male presenting via POV for skin issues. Reports he has history of hidradenitis suppurativa. He has had numerous episodes of folliculitis and skin infections as a result, he also admits prior axilla surgery bilaterally several years ago with most recent antibiotic use being January 2021. Nonetheless, today he reports having right sided genital abscess that has been worsening over past 48 hours. There is no inoculation or other concerning exposure. States area started out as a boil and has been draining white purulent material. It is exquisitely tender and has become more red per patient. He was concern for potential worsened infection of the scrotum prompting him to come in for evaluation. Denies any history of IV drug use or kidney abnormalities, no other pertinent medical conditions reported. He has been afebrile Review of Systems Review of Systems Fourteen body systems of review of systems have been reviewed. See HPI for pertinent positives and negative responses, other soler all other systems are negative, non-pertinent or non-contributory Allergies Allergies Allergies Coded Allergies Type Severity Reaction Last Updated Verified alprazolam Allergy Severe 05/02/21 Yes Penicillins Allergy Intermediate 05/02/21 Yes Physical Exam Physical Exam Constitutional: Well developed, well nourished, no acute distress, non-toxic appearance. HENT: Normocephalic, atraumatic, bilateral external ears normal, oropharynx moist, no oral exudates, nose normal. Eyes: PERRLA, EOMI, conjunctiva normal, no discharge. Neck: Normal range of motion, no tenderness, supple, no stridor. Cardiovascular: Heart rate regular, sinus rhythm, no murmurs rubs or gallops Lungs & Thorax: Bilateral breath sounds clear to auscultation Abdomen: Bowel sounds normal, soft, no tenderness, no masses, no pulsatile masses. Nonsurgical abdomen, no peritoneal signs Skin: Warm, dry, no rash. Patient does have scarring present of old healed hidradenitis suppurativa abscesses in bilateral underarms and in bilateral groin region. There is x1 deep follicle with open draining purulent abscess with slight induration and erythema present lateral to the right hand side of the scrotum overlying inguinal canal region. There is no underlying soft tissue abnormalities or surrounding crepitus Back: No tenderness, no CVA tenderness. Extremities: No tenderness, no cyanosis, no clubbing, ROM intact, no edema. Neurologic: Alert and oriented X 3, grossly normal motor & sensory function, no focal deficits noted. Psychologic: Affect normal, judgement normal, mood normal. EKG EKG [] Radiology/Procedures Radiology/Procedures [] Heart Score C/O Chest Pain: No Risk Factors: Risk Factors: DM, Current or recent (<one month) smoker, HTN, HLP, family history of CAD, obesity. Risk Scores: Risk Factors: DM, Current or recent (<one month) smoker, HTN, HLP, family histo ry of CAD, obesity. Course & Med Decision Making Course & Med Decision Making ABCs unremarkable. I disclosed entirety of ER findings and discussed most likely diagnosis of hidradenitis suppurativa/folliculitis of right groin. Other diagnoses were discussed with patient such as chancre, other STI, Emilee's gangrene and other potentially concerning diagnoses but all deemed less likely causes of patient's presentation. Discussed role of antibiotic use, patient amenable to Bactrim as he is used this in the past and reports it works the best. Has no history of kidney abnormalities, he was educated on risks of benefits of this medication and side effects such as SJS. Plan of care discussed at length with need for close outpatient follow-up to review today's ER visit stressed. Strict return precautions were also discussed at length with good understanding verbalized by patient. Patient voiced understanding and agreement with the plan. Patient knows to come back for repeat evaluation if concerning signs or symptoms present prior to outpatient follow-up. Hemodynamically stable, ambulatory and well-appearing at time of disposition. Dragon Disclaimer Dragon Disclaimer This electronic medical record was generated, in whole or in part, using a voice recognition dictation system. Departure Departure: Impression: Primary Impression: Abscess of groin, right Additional Impression: History of hidradenitis suppurativa Disposition: HOME / SELF CARE / HOMELESS Condition: STABLE Referrals: RISA JUAREZ MD (PCP) Additional Instructions: You were evaluated in the Emergency Department for an abscess. You should soak the area in warm water for 20-30 minutes 3-4 times daily. Contact your doctor for close outpatient follow-up within upcoming 3 to 7 days for repeat evaluation. As disclose you might benefit from further diagnostic work-up such as STI testing and other tests as indicated by primary care physician if your condition does not improve with prescribed therapy. Please keep the areas surrounding the abscess clean and dry. Take the antibiotics prescribed to you in full as directed. Return to the Emergency Department if you experience worsening pain, persistent fevers greater than 100.4, an increase in area of redness, increased tenderness/warmth around the abscess, foul smelling discharge from the abscess, Scripts Sulfamethoxazole/Trimethoprim (SULFAMETHOXAZOLE-TMP SS TABLET) 1 Each Tablet 1 TAB PO BID for ABSCESS for 7 Days, #14 TAB 0 Refills Prov: ARUN ROSENBAUM DO 05/02/21 Problem Qualifiers ARUN ROSENBAUM DO May 02, 2021 16:37
== END 2021-05-02 16:55 | disposition home or self-care (01) ==
LOC: ER 16:11
DX: L02.214 Cutaneous abscess of groin (principal); L73.2 Hidradenitis suppurativa; F17.210 Nicotine dependence, cigarettes, uncomplicated
CPT/HCPCS: 99283-25

== ENCOUNTER 2021-06-10 17:31 | Emergency (ER) | payer OTHER ==
[~2021-06-10] VITALS: Ht 180.3 cm; Wt 85.0 kg
[~2021-06-10 17:31] MED LIST changes: +SULF-16 PO
[2021-06-10 18:19] VITALS: BP 131/82
[2021-06-10] MEDS ORDERED: DOXY100C3 PO (18:41)
--- NOTE | 2021-06-10 18:42 | PHYS DOC ---
Past History Past Medical History: Angina, Anxiety Additional Past Medical Histor: hidradenitis suppurativa (VANCE BETHEA) Past Surgical History: Other Additional Past Surgical Histo: xena axilla surgery with skin grafts (VANCE BETHEA) Smoking: Cigarettes Alcohol Use: None (VANCE BETHEA) General Adult EDM: Chief Complaint: ABSCESS HPI: HPI: Patient is a 36 year old male with history of hidradenitis suppurativa who presents with right-sided groin pain and rash. Patient was seen in the [facility] department 2-3 weeks ago for similar complaints. At that time, he was prescribed with Bactrim. He reports that his symptoms did improve for a time, but 2-3 days ago returned and got worse. 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 He was not able to reschedule that miryam ointment until October of next year. Patient denies fever, chills, dysuria, hematuria, urethral discharge, suprapubic pain. (VANCE BETHEA) Review of Systems: Review of Systems: Constitutional: See HPI Respiratory: Denies cough or shortness of breath Cardiovascular: Denies chest pain or edema GI: Denies abdominal pain, nausea, vomiting, bloody stools or diarrhea : See HPI Integument: See HPI (VANCE BETHEA) Allergies: Allergies: Allergies Coded Allergies Type Severity Reaction Last Updated Verified alprazolam Allergy Severe 05/02/21 Yes Penicillins Allergy Intermediate 05/02/21 Yes (VANCE BETHEA) Physical Exam: PE: Constitutional: Well developed, well nourished, no acute distress, non-toxic appearance. HENT: Normocephalic, atraumatic, bilateral external ears normal, oropharynx moist, nose normal. Eyes: EOMI, conjunctiva normal, no discharge. Cardiovascular: Heart rate regular rhythm, no murmur. Lungs & Thorax: Bilateral breath sounds clear to auscultation. Genital: Scarring to bilateral inguinal folds appreciated. Right side scrotum with firm, raised area of erythema, especially on posterolateral aspect. Some weeping without underlying fluctuance at superior end of erythematous scrotal rash. Left side scrotum without rash or other skin lesions. No penile rash or other lesion appreciated. No urethral discharge. (VANCE BETHEA) Current Patient Data: Vital Signs: Vital Signs Date Time Temp Pulse Resp B/P (MAP) Pulse Ox O2 Delivery O2 Flow Rate FiO2 06/10/21 18:19 97.2 77 16 131/82 (98) 96 (VANCE BETHEA) Heart Score: C/O Chest Pain: No (VANCE BETHEA) Course & Med Decision Making: Course & Med Decision Making Pertinent Labs and Imaging studies reviewed. (See chart for details) Patient has no obvious abscess to which an I&D could be performed. Additionally, due to the sensitive nature of reproductive organs and tissues along with shared decision making with the patient, I&D deferred. Patient has at least stage II hidradenitis suppurativa, and therefore antibiotic recommendations per Epocrates guidelines are a longer course of antibiotics. Patient prescribed doxycycline 100 mg twice daily for period of 8 weeks. Patient understands that he should continue to call his surgeon to obtain earlier appointment, if possible. Patient understands and is agreeable to discharge plan. (VANCE BETHEA) Dragon Disclaimer: Dragon Disclaimer: This electronic medical record was generated, in whole or in part, using a voice recognition dictation system. (VANCE BETHEA) Departure Departure: Impression: Primary Impression: Hidradenitis suppurativa Additional Impression: Infection of scrotum Disposition: HOME / SELF CARE / HOMELESS Condition: STABLE Referrals: RISA JUAREZ MD (PCP) Patient Instructions: Cellulitis, [id number] Scripts Doxycycline Hyclate (DOXYCYCLINE HYCLATE) 100 Mg Capsule 1 CAP PO BID for hidradenitis suppurativa for 56 Days, #112 CAP Take 1 capsule by mouth twice per day for 8 weeks Prov: VANCE BETHEA 06/10/21 Attending Signature Attending Signature I have reviewed the PA/HOMOEOPATH's note and plan of care. I was available for consultation as needed during the patient's visit in the emergency department. I agree with the clinical impression, plan, and disposition. (KATY ARREAGA DO) VANCE BETHEA Jun 10, 2021 18:42 KATY ARREAGA DO Jun 10, 2021 22:13
== END 2021-06-10 18:49 | disposition home or self-care (01) ==
LOC: ER 17:31
DX: L73.2 Hidradenitis suppurativa (principal); N49.2 Inflammatory disorders of scrotum; F41.9 Anxiety disorder, unspecified; Z88.0 Allergy status to penicillin; Z88.8 Allergy status to other drugs, medicaments and biological substances
CPT/HCPCS: 99283

== ENCOUNTER 2021-08-07 09:48 | Emergency (ER) | payer OTHER ==
[~2021-08-07] VITALS: Ht 180.3 cm; Wt 85.0 kg
[~2021-08-07 09:48] MED LIST changes: +DOXY100C3 PO
[2021-08-07] MEDS ORDERED: ORPHENADRINE CITRATE 60 MG/2 ML VIAL. IM ONE (10:45)
[2021-08-07] MEDS ORDERED: KETOROLAC 60 MG/2 ML VIAL. IM ONE (10:45)
[2021-08-07] MEDS ORDERED: LIDOCAINE (700MG/PATCH) PATCH. TD SCH (10:45)
--- NOTE | 2021-08-07 10:54 | PHYS DOC ---
Past History Past Medical History: Angina, Anxiety Additional Past Medical Histor: hidradenitis suppurativa (VANCE BTEHEA) Past Surgical History: Other Additional Past Surgical Histo: xena axilla surgery with skin grafts (VANCE BETHEA) Smoking: Cigarettes Alcohol Use: None (VANCE BETHEA) General Adult EDM: Chief Complaint: BACK PAIN OR INJURY HPI: HPI: Patient is a 36 year old male who presents with low back pain that began approximately 2 days ago. Patient rates his pain as severe and mostly on the right side of his low back radiating superiorly as well as down his left leg. 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 He denies history of chronic low back pain. Patient also denies fever, chills, saddle anesthesia, bowel or bladder incontinence, paresthesias in his lower extremities, IV drug use. (VANCE BETHEA) Review of Systems: Review of Systems: Constitutional: See HPI Eyes: Denies change in visual acuity, visual field deficits or discharge HENT: Denies ear pain, nasal congestion or sore throat Respiratory: Denies cough or shortness of breath Cardiovascular: Denies chest pain, palpitations or edema GI: Denies abdominal pain, nausea, vomiting, bloody stools or diarrhea : Denies dysuria or hematuria Musculoskeletal: See HPI Integument: Denies rash or other skin lesion Neurologic: See HPI (VANCE BETHEA) Current Medications: Current Meds: Current Medications Medications (Trade) Dose Ordered Sig/[facility] Start Time Stop Time Status Last Admin Dose Admin Ketorolac Tromethamine (Toradol Im) 60 mg 1X ONCE 08/07/21 10:45 08/07/21 10:46 DC Lidocaine (Lidoderm) 1 patch 1X 08/07/21 10:45 Orphenadrine Citrate (Norflex) 60 mg 1X ONCE 08/07/21 10:45 08/07/21 10:46 DC (VANCE BETHEA) Allergies: Allergies: Allergies Coded Allergies Type Severity Reaction Last Updated Verified alprazolam Allergy Severe 05/02/21 Yes Penicillins Allergy Intermediate 05/02/21 Yes (VANCE BETHEA) Physical Exam: PE: Constitutional: Well developed, well nourished, no acute distress, non-toxic appearance. HENT: Normocephalic, atraumatic, bilateral external ears normal, nose normal. Eyes: EOMI, conjunctiva normal, no discharge. Neck: Normal range of motion, no step-off no midline midline, no paraspinal tenderness, no stridor. Skin: Warm, dry, no erythema, no rash. Back: No step-off, no midline tenderness, no CVA tenderness, right-sided high lumbar paraspinal muscle spasm and tenderness appreciated. Extremities: No tenderness, no cyanosis, no clubbing, ROM intact, no edema. Neurologic: Alert and oriented x4, steady and symmetrical gait, no focal defici ts noted, straight leg raise test negative bilaterally. (VANCE BETHEA) Current Patient Data: Vital Signs: Vital Signs Date Time Temp Pulse Resp B/P (MAP) Pulse Ox O2 Delivery O2 Flow Rate FiO2 08/07/21 11:36 80 16 150/76 (100) 99 Room Air 08/07/21 09:57 98.0 86 159/79 (105) 99 Room Air (VANCE BETHEA) Heart Score: C/O Chest Pain: No (VANCE BETHEA) Course & Med Decision Making: Course & Med Decision Making Pertinent Labs and Imaging studies reviewed. (See chart for details) Patient is a 36-year-old male who presents with acute back pain after strenuous activity at work in the past week. Patient treated today with Toradol, Norflex and lidocaine patch. Patient reports his pain is now 5/10 down from 8/10. Patient was counseled on muscle strain pain and how to treat it. He is aware that his pain should improve over the next few days. If it does not, he is to return to the emergency department, see his primary care doctor or visit pain management. Patient understands and is agreeable to discharge plan. (VANCE BETHEA) Course & Med Decision Making I was the Attending physician on the above date of service of this patient. This patient was evaluated, examined, treated, and dispositioned from the emergency department by the mid-level practitioner. Although I was working at the time , no assistance was requested. Electronically signed, Arun Rosenbaum DO (ARUN ROSENBAUM DO) Sariah Disclaimer: Sariah Disclaimer: This electronic medical record was generated, in whole or in part, using a voice recognition dictation system. (VANCE BETHEA) Departure Departure: Impression: Primary Impression: Low back strain Qualified Codes: S39.012A - Strain of muscle, fascia and tendon of lower back, initial encounter Disposition: HOME / SELF CARE / HOMELESS Condition: STABLE Referrals: RISA JUAREZ MD (PCP) LISBETH BROWN MD Patient Instructions: Back Exercises, Kwab-[id number], Back Injury Prevention, [id number], Back Pain, Adult Additional Instructions: Continue to take over the counter NSAIDS (up to 800mg ibuprofen or up to 500mg naproxen) for inflammation and pain. Norflex (orphenadrine citrate) may be taken every 12 hours or just at bedtime. Stretches and massage will also help. Please return to the emergency department if your symptoms worsen or you develop new ones. Scripts Orphenadrine Citrate (ORPHENADRINE CITRATE) 100 Mg Tablet.er 1 TAB PO BID for muscle spasm, #20 TAB Prov: VANCE BETHEA 08/07/21 VANCE BETHEA Aug 07, 2021 10:54 ARUN ROSENBAUM DO Aug 09, 2021 20:00
[2021-08-07] MEDS ORDERED: ORPH-16 PO (11:26)
[2021-08-07 11:36] VITALS: BP 150/76
== END 2021-08-07 11:41 | disposition home or self-care (01) ==
LOC: ER 09:48
DX: S39.012A Strain of muscle, fascia and tendon of lower back, initial encounter (principal); F17.210 Nicotine dependence, cigarettes, uncomplicated; X58.XXXA Exposure to other specified factors, initial encounter; Y93.89 Activity, other specified; Y92.89 Other specified places as the place of occurrence of the external cause; Y99.8 Other external cause status
CPT/HCPCS: 96372; 99284; J1885; J2360

== ENCOUNTER 2021-08-28 00:13 | Emergency (ER) | payer OTHER ==
[~2021-08-28] VITALS: Ht 180.3 cm; Wt 80.5 kg
[~2021-08-28 00:13] MED LIST changes: +ORPH-16 PO
--- NOTE | 2021-08-28 00:24 | PHYS DOC ---
Past History Past Medical History: Angina, Anxiety, Sciatica Additional Past Medical Histor: hidradenitis suppurativa Past Surgical History: Other Additional Past Surgical Histo: xena axilla surgery with skin grafts Smoking: Cigarettes Alcohol Use: None General Adult HPI: HPI: ".. I still have back pain.. ".,. I ve had this before . the pain running down my Rt. leg.. " Patient is a 36 year old male who presents with above hx and complaints of lower back that radiates down Rt. leg. Patient has history of previous sciatica exacerbations. Patient has history of prior back injury. Patient denies any falls defecation or urination. No history of fever or chills. No history of IV drug use. Patient denies any history of immunosuppression. Patient does have a past history of angina, hidradenitis, tobacco use,. Patient does continue to smoke and use alcohol occasionally. Patient denies any recent trauma. Pt. has not followed up with primary since last visit.. Patient was seen here on 08/07/2021. Review of Systems: Review of Systems: Constitutional: Denies fever or chills Eyes: Denies change in visual acuity HENT: Denies nasal congestion or sore throat Respiratory: Denies cough or shortness of breath Cardiovascular: Denies chest pain or edema GI: Denies abdominal pain, nausea, vomiting, bloody stools or diarrhea : Denies dysuria Musculoskeletal: Complains of back pain and sciatic pain into her right hip Integument: Denies rash Neurologic: Denies headache, focal weakness or sensory changes Endocrine: Denies polyuria or polydipsia Lymphatic: Denies swollen glands Psychiatric: Denies depression or anxiety Family History: Family History: There is family history of sleep apnea with mother. Father of heart jaron cks and diabetes. Current Medications: Current Meds: See nursing for home meds Allergies: Allergies: Allergies Coded Allergies Type Severity Reaction Last Updated Verified alprazolam Allergy Severe 05/02/21 Yes Penicillins Allergy Intermediate 05/02/21 Yes Physical Exam: PE: Constitutional: Moderate acute distress, non-toxic appearance. [] HENT: Normocephalic, atraumatic, bilateral external ears normal, oropharynx moist, no oral exudates, nose normal. [] Eyes: PERRLA, EOMI, conjunctiva normal, no discharge. [] Neck: Normal range of motion, no tenderness, supple, no stridor. [] Cardiovascular:Heart rate regular rhythm, no murmur [] Lungs & Thorax: Bilateral breath sounds equal apex scattered wheezes auscultation [] Abdomen: Bowel sounds normal, soft, no tenderness, no masses, no pulsatile masses. Scar Skin: Warm, dry, no erythema, no rash. Large keloid at upper part of gluteal crease Back: Presacral tenderness, also spasms, pain into right sciatic nerve. No CVA tenderness. [] Extremities: No tenderness, no cyanosis, no clubbing, ROM intact, no edema. Straight leg lift exacerbates pain on right. Neurologic: Alert and oriented X 3, normal motor function, normal sensory function, no focal deficits noted. [] Psychologic: Affect anxious l, judgement normal, mood normal. [] EKG: EKG: [] Radiology/Procedures: Radiology/Procedures: [[address] [id number] IMAGING REPORT Signed PATIENT: CORWIN MCGARRY ACCOUNT: [id number] : 1985 LOCATION: ER AGE: 36 SEX: M EXAM STATUS: REG ER ORD. PHYSICIAN: VIOLETA MENENDEZ MD REASON: sciatica- no improve since 08/07- Rt PROCEDURE: CT LUMBAR SPINE WO CONTRAST CT lumbar spine without contrast History: Back pain Axial helical images of the lumbar spine were obtained without contrast. Axial, coronal and sagittal reconstruction was performed. Findings: The vertebral bodies are aligned. There is no loss of vertebral body stature. Evaluation of the central canal is limited without contrast. There is loss of intervertebral disc height L5-S1 and marginal spurring at endplates. There is moderate narrowing of the neuroforamen bilaterally below the level of the nerve roots. Impression: Moderate chronic degenerative changes at L5-S1. No acute findings. RS Compliance Statement: One or more of the following individualized dose reduction techniques were utilized for this examination: 1. Automated exposure control 2. Adjustment of the mA and/or kV according to patient size 3. Use of iterative reconstruction technique Electronically signed by: Charly Russell III, MD (08/28/2021 1:05 AM) [facility] DICTATED AND SIGNED BY: CHARLY RUSSELL III, MD DATE: 08/28/21101 CC: RISA JUAREZ MD; VIOLETA MENENDEZ MD ~[facility] 0 ][address] [address] IMAGING REPORT Signed PATIENT: CORWIN MCGARRY ACCOUNT: [id number] : 1985 LOCATION: ER AGE: 36 SEX: M EXAM STATUS: REG ER ORD. PHYSICIAN: VIOLETA MENENDEZ MD REASON: sciatica- no improve since 08/07- Rt PROCEDURE: CT LUMBAR SPINE WO CONTRAST CT lumbar spine without contrast History: Back pain Axial helical images of the lumbar spine were obtained without contrast. Axial, coronal and sagittal reconstruction was performed. Findings: The vertebral bodies are aligned. There is no loss of vertebral body stature. Evaluation of the central canal is limited without contrast. There is loss of intervertebral disc height L5-S1 and marginal spurring at endplates. There is moderate narrowing of the neuroforamen bilaterally below the level of the nerve roots. Impression: Moderate chronic degenerative changes at L5-S1. No acute findings. PQRS Compliance Statement: One or more of the following individualized dose reduction techniques were utilized for this examination: 1. Automated exposure control 2. Adjustment of the mA and/or kV according to patient size 3. Use of iterative reconstruction technique Electronically signed by: Charly Russell III, MD (08/28/2021 1:05 AM) [facility] DICTATED AND SIGNED BY: CHARLY RUSSELL III, MD DATE: 08/28/21101 CC: RISA JUAREZ MD; VIOLETA MENENDEZ MD ~[facility] 0 Heart Score: C/O Chest Pain: N/A Risk Factors: Risk Factors: DM, Current or recent (<one month) smoker, HTN, HLP, family history of CAD, obesity. Risk Scores: Score 0 - 3: 2.5% MACE over next 6 weeks - Discharge Home Score 4 - 6: 20.3% MACE over next 6 weeks - Admit for Clinical Observation Score 7 - 10: 72.7% MACE over next 6 weeks - Early Invasive Strategies Course & Med Decision Making: Course & Med Decision Making Pertinent Labs and Imaging studies reviewed. (See chart for details) Ice packs as needed . Tylenol and Ibuprofen for pain. Follow up with primary. May take Flexeril 10 up three times a day for spasm. May need MRI and intrathecal contrast to truly evaluate spinal stenosis and facet constriction. Follow-up consider follow-up with neurosurgery. Impression: 1. 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 Sciatica 3. Tobacco use 4. Alcohol use 5. Prior history of angina 6. Prior history of hidradenitis [] Dragon Disclaimer: Dragon Disclaimer: This electronic medical record was generated, in whole or in part, using a voice recognition dictation system. Departure Departure: Referrals: RISA JUAREZ MD (PCP) Scripts Cyclobenzaprine Hcl (CYCLOBENZAPRINE HCL) 10 Mg Tablet 10 MG PO TID for muscle spasms, #30 TAB Prov: VIOLETA MENENDEZ MD 08/28/21 Sariah Disclaimer This chart was dictated in whole or in part using Voice Recognition software in a busy, high-work load, and often noisy Emergency Department environment. It may contain unintended and wholly unrecognized errors or omissions. Dragon Disclaimer This chart was dictated in whole or in part using Voice Recognition software in a busy, high-work load, and often noisy Emergency Department environment. It may contain unintended and wholly unrecognized errors or omissions. VIOLETA MENENDEZ MD Aug 28, 2021 00:23
[2021-08-28 00:25] VITALS: BP 156/85
[2021-08-28] MEDS ORDERED: KETOROLAC 60 MG/2 ML VIAL. IM ONE (01:00)
--- NOTE | 2021-08-28 01:07 | RAD ---
CT lumbar spine without contrast History: Back pain Axial helical images of the lumbar spine were obtained without contrast. Axial, coronal and sagittal reconstruction was performed. Findings: The vertebral bodies are aligned. There is no loss of vertebral body stature. Evaluation of the central canal is limited without contrast. There is loss of intervertebral disc hei ght L5-S1 and marginal spurring at endplates. There is moderate narrowing of the neuroforamen bilater ally below the level of the nerve roots. Impression: Moderate chronic degenerative changes at L5-S1. No acute findings. PQRS Compliance Statement: One or more of the following individualized dose reduction techniques were utilized for this examinat ion: 1. Automated exposure control 2. Adjustment of the mA and/or kV according to patient size 3. Use of iterative reconstruction technique Electronically signed by: Duane Garcia III, MD (08/28/2021 1:05 AM) [facility]
[2021-08-28] MEDS ORDERED: CYCL10TA19 PO (01:18)
[2021-08-28] MEDS ORDERED: ORPHENADRINE CITRATE 60 MG/2 ML VIAL. IM ONE (02:00)
== END 2021-08-28 01:55 | disposition home or self-care (01) ==
LOC: ER 00:13
DX: M47.897 Other spondylosis, lumbosacral region (principal); M54.41 Lumbago with sciatica, right side; I20.9 Angina pectoris, unspecified; F41.9 Anxiety disorder, unspecified; F17.210 Nicotine dependence, cigarettes, uncomplicated; Z88.0 Allergy status to penicillin; Z88.8 Allergy status to other drugs, medicaments and biological substances
CPT/HCPCS: 72131; 96372; 99284; J1885; J2360